=== PATIENT | female | born 2005 | race Caucasian/White ===

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

== ENCOUNTER → 2024-12-12 | Outpatient (CLI) | payer BC, SELFPAY ==
--- NOTE | 2024-12-12 15:45 | RAD_ITS ---
PROCEDURE: LUMBAR SPINE 2 OR 3 VIEWS 12/12/2024 REASON FOR EXAM: LOW BACK PAIN TECHNIQUE: Procedure Code: RADSPLL Modality: DX Procedure: LUMBAR SPINE 2 OR 3 VIEWS FINDINGS: No evidence of acute fracture or dislocation. Mild scoliotic curvature. The intervertebral disc spaces and vertebral body heights are maintained. RAD/Lumbar Spine 2 or 3 Views IMPRESSION: Mild scoliotic curvature. Reading Location: [id number]
== END | disposition home or self-care (01) ==
LOC: MTRAD 15:41
PROVIDERS: PCP Family Medicine; Referring Provider Family Medicine; Visit Provider Family Medicine
DX: M54.50 Low back pain, unspecified (principal)
CPT/HCPCS: 72100

== ENCOUNTER → 2025-03-11 | Outpatient (CLI) | payer BC, SELFPAY ==
--- NOTE | 2025-03-11 14:45 | RAD_ITS ---
PROCEDURE: KNEE 4 OR MORE VIEWS 03/11/2025 REASON FOR EXAM: PAIN TECHNIQUE: Procedure Code: RADKN Modality: DX Procedure: KNEE 4 OR MORE VIEWS COMPARISON: None. RAD/Knee 4 or More Views IMPRESSION: No right knee joint effusion is seen. No significant arthritic process or joint narrowing is noted. Satisfactory oss eous alignment. No other significant osseous abnormality is noted. Reading Location: [place] [id number]
--- OUTSIDE RECORDS SUMMARY | 2025-03-11 19:56 | XMS RPT_ITS | CCD ---
Author Organization [facility] Care Team Providers Care Project Administrative Assistant Name Role Phone ALANIS, BAMBI A Unavailable Unavailable REFERRED, SELF Unavailable Unavailable ALANIS, BAMBI A Unavailable Unavailable ALANIS, BAMBI A Unavailable Unavailable REFERRED, SELF Unavailable Unavailable ALANIS, BAMBI A Unavailable Unavailable ALANIS, BAMBI A Unavailable Unavailable REFERRED, SELF Unavailable Unavailable ALANIS, BAMBI A Unavailable Unavailable FEDERICO, NESTOR B Unavailable Unavailable ALANIS, BAMBI A Unavailable Unavailable ALANIS, BAMBI A Unavailable Unavailable ALANIS, BAMBI A Unavailable Unavailable REFERRED, SELF Unavailable Unavailable ALANIS, BAMBI A Unavailable Unavailable ALANIS, BAMBI A Unavailable Unavailable REFERRED, SELF Unavailable Unavailable ALANIS, BAMBI A Unavailable Unavailable NAJARIAN, CHRISTOPHER R Unavailable Unavaila ble ALANIS, BAMBI A Unavailable Unavailable ALANIS, BAMBI A Unavailable Unavailable NAJARIAN, CHRISTOPHER R Unavailable Unavaila ble ALANIS, BAMBI A Unavailable Unavailable ALANIS, BAMBI A Unavailable Unavailable NAJARIAN, CHRISTOPHER R Unavailable Unavaila ble NAJARIAN, CHRISTOPHER R Unavailable Unavaila ble ALANIS, BAMBI A Unavailable Unavailable TIMMEL, MANISH M Unavailable Unavailable REFERRED, SELF Unavailable Unavailable ALANIS, BAMBI A Unavailable Unavailable ALANIS, BAMBI A Unavailable Unavailable REFERRED, SELF Unavailable Unavailable ALANIS, BAMBI A Unavailable Unavailable Vero Balbuena Attending Unavailable MalysVero Referring Unavailable Malys, Vero Primary Care Unavailable MalysVero Attending Unavailable Malys, Vero Primary Care Unavailable Naveedys Dr. Vero LAWRENCE Primary Care Physician Dr. Vero Balbuena DO Attending Physician Dr. Vero Balbuena DO Referring Provider [phone] Allergies Allergy Classification Reported Allergen(s) Allergy Type Date of Onset Reaction(s) Facility (1 source) peanut; Translations: [PEANUT ALLERGY] Propensity to adverse reactions to drug (disorder) 6 [facility] Repository (1 source) NO KNOWN ALLERGIES; Translations: [NO KNOWN ALLERGIES] Propensity to adverse reactions (disorder) [facility] Repository Medications Current Medications Medication Drug Class(es) Dates Sig (Normalized) Sig (Original) Sehili (Nk) (1 source) Start: 05-03-2022 Sehili (Nk) A ctive May 03, 2022 1:00am Completed/Discontinued Medications Medication Drug Class(es) Dates Sig (Normalized) Sig (Original) amoxicillin 875 mg / clavulanate 125 mg oral tablet (2 sources) Penicillin-class Antibacterial Start: 11-28-2020 End: 12-08-2020 Amoxicillin-Pot Clavulanate (Augmentin) 875-125 mg tablet Discontinued 1 {tbl} PO Q12H 20 10 0 November 28, 2020 12:00am December 07, 2020 12:00am December 08, 2020 12:01am Acute sinusitis, unspecified betamethasone 0.5 mg/ml / clotrimazole 10 mg/ml topical cream (2 sources) Azole Antifungal, Corticosteroid Start: 11-28-2020 End: 12-12-2020 Clotrimazole-Betam ethasone 1-0.05 % cream Discontinued 1 NMA TOPICAL TWICE A DAY 45 14 0 November 28, 2020 12:00am December 11, 2020 12:00am December 12, 2020 12:01am Start: 11-28-2020 End: 12-12-2020 Clotrimazole-Betamethasone D iscontinued 1 APPLIC TOPICAL TWICE A DAY 45 14 November 27, 2020 11:00pm December 11, 2020 11:01pm cetirizine hydrochloride 10 mg oral tablet (2 sources) Histamine-1 Receptor Antagonist Start: 08-29-2021 End: 09-05-2021 take 1 tablet by mouth twice daily Cetirizine 10 mg tablet Discontinued 10 mg PO TWICE A DAY 14 7 0 August 29, 2021 12:00am September 04, 2021 12:00am September 05, 2021 12:05am Norgestimate-Ethinyl Estradiol (2 sources) Progestin, Estrogen Start: 06-22-2018 End: 05-03-2022 take 0.25 tablet by mouth once daily Norgestimate-Ethin yl Estradiol ([place]-Linyah 28 Tablet) 0.25-0. tablet Discontinued 1 {tbl} PO DAILY June 22, 2018 12:00am May 03, 2022 1:51pm Start: 06-22-2018 Norgestimate-E thinyl Estradiol ([place]-Linyah 28 Tablet) 0.25- 0. tablet Active 1 TABLET PO DAILY June 21, 2018 11:00pm famotidine 20 mg oral tablet (2 sources) Histamine-2 Receptor Antagonist Start: 08-29-2021 End: 09-05-2021 take 1 tablet by mouth once daily Famotidine 20 mg tablet Discontinued 20 mg PO DAILY 7 7 0 August 29, 2021 12:00am September 04, 2021 12:00am September 05, 2021 12:05am fluconazole 150 mg oral tablet (2 sources) Azole Antifungal Start: 12-05-2020 End: 08-29-2021 Fluconazole (Diflucan) 150 mg tablet Discontinued 150 mg PO Every 3 Days 2 0 December 05, 2020 12:00am August 29, 2021 11:40am july repeat second dose 72 hrs after first dose if symptoms persist predniSONE 10 mg oral tablet (2 sources) Start: 08-29-2021 End: 09-05-2021 Prednisone 10 mg tablet Discontinued 10 mg PO .COMPLEX 9 7 0 August 29, 2021 12:00am September 04, 2021 12:00am September 05, 2021 12:05am 10 mg orally; 20mg day 1, 20mg day 2, 20 mg day 3, 10mg day 4, 10mg day 5, 5mg day 6, 5mg day 7 Problems Active Problems Problem Classification Problem Date Documented Date Episodic/Chronic Abdominal pain (1 source) Abdominal tenderness of left lower quadrant; Translations: [Left lower quadrant abdominal tenderness] 05-03-2022 Episodic Allergic reactions (2 sources) Environmental allergy; Translations: [Other allergy status, other than to drugs and biological substances] 08-29-2021 Episodic Open wounds of extremities (2 sources) Laceration of index finger; Translations: [Laceration without foreign body of other finger without damage to nail, initial encounter] 03-29-2021 Episodic Other upper respiratory infections (4 sources) Upper respiratory infection; Translations: [Acute upper respiratory infection, unspecified] 05-11-2017 Episodic Unclassified (1 source) Low back pain, unspecified; Translations: [Low back pain, unspecified] Onset: 12-21-2024 Past or Other Problems Problem Classification Problem Date Documented Da te Episodic/Chronic Conditions associated with dizziness or vertigo (1 source) Dizziness and giddiness; Translations: [Dizziness and giddiness] Onset: 04-24-2024 Episodic Malaise and fatigue (1 source) Weakness; Translations: [Weakness] Onset: 04-24-2024 Episodic Other gastrointestinal disorders (1 source) Diarrhea, unspecified; Translations: [Diarrhea, unspecified] Onset: 04-24-2024 Episodic Results Test Name Value Interpretation Reference Range Facility Lumbar Spine 2 or 3 Viewson 12-12-2024 Lumbar Spine 2 or 3 Views [facility] [address], [place] [address] Lumbar Spine 2 or 3 Views MR#: [id number] Acct: [id number] Name: MILAN BALLARD Rep #: [id number] : 2005 F 19 From: Navdeep Maria MD PCP: Dr. Vero Balbuena DO Status: REG CLI Study: Lumbar Spine 2 or 3 Views Date of Exam: Exam# [id number] Ordering Dr: Vero Balbuena DO PROCEDURE: LUMBAR SPINE 2 OR 3 VIEWS 12/12/2024 REASON FOR EXAM: LOW BACK PAIN TECHNIQUE: Procedure Code: RADSPLL Modality: DX Procedure: LUMBAR SPINE 2 OR 3 VIEWS FINDINGS: No evidence of acute fracture or dislocation. Mild scoliotic curvature. The intervertebral disc spaces and vertebral body heights are maintained. RAD/Lumbar Spine 2 or 3 Views IMPRESSION: Mild scoliotic curvature. Reading Location: [id number] CC: Dr. Vero Balbuena DO Residential Caregiver: Signed Normal [facility] Iron measurement (mass/mass) Ordered By: Dr. Balbuena on 04-15-2022 Iron (Unsp spec) [Mass/Mass] 87 ug/dL 50-170 [facility] Comment on above: Moderate Hemolysis, Result may be falsely increased. Laboratory - Chemistry and C hemistry - challengeOrdered By: Dr. Balbuena on 04-15-2022 Cobalamin (Vitamin B12) [Mass/Vol] 632 pg/mL 211-911 [facility] No Panel InformationOrdered By: Dr. Balbuena on 04-15-2022 Vitamin D 25-Hydroxy 27.2 ng/mL [facility] Comment on above: Vitamin D 25(OH) Sta tus Range Deficiency <20 ng/mL (50nmol/L) Insufficiency 20 - 30 ng/mL (50 - 75 nmol/L) Sufficiency 30 - 100 ng/mL (75 - 250 nmol/L) Toxicity >100 ng/mL (>250 nmol/L) Progress Noteon 01-04-2018 Pharmacy District Manager Authentication Interface Message Text Patient ID: Milan Ballard is a 12 y.o. female. Her chief complaint(s)include: Wound Check (cramping (better))Assessment1. Abdominal cramping2. Dysmenorrhea3. Vaccine refused by parentPlanHayley was seen today for wound check.Diagnoses and all orders for this visit:Abdominal cramping- norgestimate-ethinyl estradiol (MONONESSA) 0.25-35 MG-MCG per tablet; Take1 Tab by mouth daily for 10 daysDysmenorrhea- norgestimate-ethinyl estradiol (MONONESSA) 0.25-35 MG-MCG per tablet; Take1 Tab by mouth daily for 10 daysVaccine refused by parentPatient doing much better since placed on the oral contraceptives. Not havingany side effects of the medication. Will continue with current medication.Discussed discontinuing the OCPs in the future once pain and cycle are regulatedto see if discomfort returns. Patient wanting to keep thing the same for now.Return in about 6 months (around 07/05/2018).MunirShe is accompanied by her mother.Abdominal PainThe onset has been acute. The duration has been 2 months. The pattern ispersistent. The course is improving. The symptoms are described as severe.The highest pain severity has been 8/10. The symptoms are characterized ascramping and sharp. Location: alternating sides. The pain has no radiation.Contributing Factors: abdominal pain was associated with her menses. Thesymptoms are aggravated by nothing. Symptoms are relieved by medication(started on OCP which has been helping).Associated symptoms include sleep disturbance (slight). Associated symptoms donot include fatigue, irritability, interference with activity, decreasedappetite, weight loss, jaundice, headaches, sore throat, heartburn, diarrhea,vomiting, amenorrhea and urinary changes. (Patient is not having anybreakthrough bleeding, weight gain or loss, hair loss).The patient's diet consists of a well balanced diet.She describes her cycle as having: regularity - every 28-30 days. The patienthas never had a significant other.There have been no previous evaluations..Primary Care Review of SystemsObjectiveVital Signs 01/04/18 1629BP: 124/78Pulse: 94Temp: 36.2 C (97.1 F)TempSrc: TemporalWeight: 60.1 kgThere is no height or weight on file to calculate BMI.Physical ExamConstitutional: She appears well. She is active. No distress.HENT:Head: Atraumatic.Right Ear: Tympanic membrane and external ear normal.Left Ear: Tympanic membrane and external ear normal.Nose: Nose normal.Mouth/Throat: Mucous membranes are moist. Dentition is normal.Eyes: Conjunctivae and EOM are normal. Pupils are equal, round, and reactive tolight.Neck: Neck supple. No neck adenopathy.Cardiovascular: Normal rate, regular rhythm, S1 normal and S2 normal. Pulsesare palpable.Pulmonary/Chest: Effort normal and breath sounds normal.Abdominal: Soft. Bowel sounds are normal. She exhibits no distension and nomass. There is no tenderness.Musculoskeletal: She exhibits no deformity.Neurological: She is alert. She has normal strength. She exhibits normal muscletone.Skin: No rash noted. No cyanosis. No pallor. Skin is warm. Normal [facility] Progress Noteon 11-04-2017 Pharmacy District Manager Authentication Interface Message Text Patient ID: Milan Ballard is a 12 y.o. female. Her chief complaint(s)include: Ovarian Cyst (possible; abdominal pain)Assessment1. Dysmenorrhea2. Abdominal crampingPlanHayley was seen today for ovarian cyst.Diagnoses and all orders for this visit:Dysmenorrhea- POCT urine HCG- norgestimate-ethinyl estradiol (ORTHO-CYCLEN) 0.25-35 MG-MCG per tablet;Take 1 Tab by mouth dailyAbdominal cramping- norgestimate-ethinyl estradiol (ORTHO-CYCLEN) 0.25-35 MG-MCG per tablet;Take 1 Tab by mouth dailyReturn in about 2 months (around 01/04/2018) for abdominalcramping/dysmenorrhea. hcg negative. Will start OCP for severe midcycle cramping not responding totreatment with NSAIDs. Discussed possible side effects and reasons to call theoffice. No personal or family history significant for increased risk ofthrombosis. Will follow up in 2 months for recheck of symptoms after startingthe OCP and will call sooner if any concerns or questions.SubjectiveHPI Comments: Has had 5 days of abdominal pain. Initially on left side nowacross lower abdomen. Intermittent over the past few days, becoming moreconstant now. Crampy. Taking Aleve twice per day and using heating pads. Slightimprovement but not a lot with the heat and meds. Last period was about 2 weeksago. Same timing between periods before when she had the symptoms previously(midcycle). No nausea or vomiting. No diarrhea or constipation this time. Nourinary symptoms.No major problems or bad cramping when she is on her period. No problems withheavy bleeding. Periods are regular. Menarche was 2.5 years ago. Abdominal painis always about 2-3 weeks after her period (has had 3 similar episodes now).Also having headaches with it (mild, resolve with the aleve). Did start highschool this week as well.A few months ago, had first similar episode and went [facility]. CT scanshowed bilateral ovarian cysts- one ruptured. Saw Dr. Alanis for a secondepisode then returned today with similar symptoms. Has tried ibuprofen and midolbefore without improvement.She is accompanied by her mother and sibling(s).Ovarian CystThe onset has been acute. The duration has been 5 days.The patient's symptoms include: abdominal pain, abdominal cramping, fatigue andheadaches. The patient has: no back pain, no breast tenderness, no heavy flow,no nausea, no pelvic pain, no syncope, no urinary frequency and no vomiting.The patient is noted to be negative for constipation, diarrhea, difficultysleeping, fever and muscle weakness.The patient has reached menarche. Milan's age at menarche was 10. Patient'slast menstrual period was 10/16/2017 (within days). She describes her cycleas having: regularity - every 28-30 days.The patient has never had sex.ContraceptionHayley is here today regarding a new prescription. status: not.The patient has never had sex.She has not had a blood clot in her legs or lungs. There is not a familyhistory of blood clots in the legs or lungs. She had no miscarriages. There isnot a family history of miscarriages. There is no cancer in the patient'shistory. The patient reports no stroke or heart attack. She currently couldnot be . She does not have Sickle Cell, Diabetes, gall bladder orliver disease. She has no severe headaches. (Has mild headaches that respondto OTC NSAIDs. Has never had a headache or migraine with aura.). Milan doesnot have migraines She does not smoke.Primary Care Review of SystemsObjectiveVital Signs 11/04/17 1005Temp: 36.3 C (97.4 F)TempSrc: TemporalWeight: 62.1 kgThere is no height or weight on file to calculate BMI.Physical ExamConstitutional: She appears well. She is active. No distress.HENT:Head: Atraumatic.Nose: No nasal discharge.Mouth/Throat: Mucous membranes are moist.Eyes: Conjunctivae are normal.Neck: Normal range of motion. Neck supple.Cardiovascular: Normal rate and regular rhythm. Pulses are strong.No murmur heard.Pulmonary/Chest: Effort normal and breath sounds normal. There is normal airentry. No respiratory distress. She has no wheezes. She has no rhonchi. She hasno rales.Abdominal: Soft. Bowel sounds are normal. She exhibits no distension and nomass. There is tenderness (mild tenderness to palpation throughout lowerabdomen). There is no rebound and no guarding.Musculoskeletal: No pain, swelling, or limited range of motion at any joint.Neurological: She is alert.Skin: Capillary refill takes less than 3 seconds. No rash noted. Skin is warm. Normal [facility] Progress Noteon 08-23-2017 Pharmacy District Manager Authentication Interface Message Text Milan Ballard is a 12 y.o. female here for new office visit.History of Present IllnessInjured May 31. [place] light headed and fell and hit head on book case.Knocked out < 10 seconds. 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 +HAdizziness and nausea. Concurrent stomach bug. June 06 - Dr. Alanis dx TBI.Start Magnesium and B2.Ran out of B2.EKG 06/07 - normal/ - discussed periactin06/29 - augmentin for sinusitisToday RAVI daily comes and goes. Takes Advil 200 mg 3x/week. Dizzy most dayscomes and goes. Reading and school makes worse. Better with silence andsunglasses and ice. Tight like a head band, sometimes does down the neck.Turn head makes it hurt below occipital protuberance. PS 3-810.Dizziness with and without RAVI, worse with stairs and moving heard.Sinus RAVI just feel pressure.Difficulty concentrating and remembering and falling asleep.No band for 2 weeks Everything getting better. No Mg, B2 or periactin in 2 weeks. Hangover effectinto school. Still gets sinus RAVI in eyes and frontal. Last RAVI was end of Juneor Early July. Got accommodations for state testing/extra time. Doing softball- hitting and running in practice and games. No dizziness.Took one dose of melatonin - now no issues falling asleep.Headache phenotype (answer yes or no)Possible migraine phenotype? (A yes answer for 2/3 following items)Is nausea present? NoIs light sensitivity present? NoDoes headache prevent you from doing your regular activities? NoAdditional features for stratificationContinuous headache present? NoDaily headache present? No8th grade [employer]. A-B student. Grades down slightly.Missed 3 days of school initially. Going full days.No prior concussions. Hx of sinus headaches. No psych history.Plays softball. HistoryNo history on file.Past Medical HistoryNo past medical history on file.Ruptured ovarian cystPast Surgical HistoryNo past surgical history on file.AllergiesNo Known AllergiesMedicationsOutpatient Encounter Prescriptions as of 08/23/2017Medication Sig Dispense Refill magnesium oxide (MAG OX) 400 MG TABS tablet Take 1 Tab (400 mg) by mouth daily30 Tab 2 melatonin 3 MG tablet Take 1 Tab (3 mg) by mouth nightly at bedtime 30 Tab 2 vitamin B-2 (RIBOFLAVIN) 100 MG capsule Take 4 Caps (400 mg) by mouth Cap 2 cyproheptadine (PERIACTIN) 4 MG tablet Take 1 Tab (4 mg) by mouth At bedtime(Patient taking differently:Take 4 mg by mouth At bedtime Taking half tab) 30 Tab 2 vitamin B-2 (RIBOFLAVIN) 100 MG tablet Take 2 Tabs (200 mg) by mouth daily 60Tab 2 Tetrahydrozoline HCl (EYE DROPS OP) Apply to eye as needed fluticasone (FLONASE) 50 MCG/ACT nasal spray 1 [place] by Each Nare route daily16 g 11 Ketotifen Fumarate (ZADITOR, ALAWAY) 0.025 % opthalmic solution instill 1 Dropinto both eyes 2 times daily 10 mL 11 Naproxen Sodium (ALEVE PO) Take 200 mg by mouth as needed cetirizine (ZYRTEC) 10 MG tablet Take 10 mg by mouth daily as needed Magnesium Oxide (MAG OX) 400 (241.3 Mg) MG TABS tablet Take 1 Tab (400 mg) bymouth daily 30 Tab 2No facility-administered encounter medications on file as of 08/23/2017.Family Medical HistoryFamily HistoryProblem Relation Age of Onset No known problems Mother No known problems Father Allergies Brother seasonal/?pcn Stroke BrotherSocial HistorySocial HistorySubstance Use Topics Smoking status: Never Smoker Smokeless tobacco: Never Used Alcohol use Not on fileSocial HistoryTherapiesNoneEquipmentNo neFunctional StatusOFHFeedDressTransfersBowe l/bladder programMobilityCommunicationRev iew of SystemsPertinent items are noted in HPI. Please see H&P.Physical ExaminationVitals: 08/23/17 1253BP: 125/60Pulse: 104Weight: 60.3 kgHeight: 168.5 cmBody mass index is 21.24 kg/m .General appearance: alert, well appearing and cooperativeHead: normocephalic, without obvious abnormalityEyes: conjugate gaze EOM's intactNeck: NTBack: straightLungs: easy work of breathingHeart: NTAbdomen: NRExtremities: moves all extremities spontaneouslySkin: skin color, texture, turgor normal. No rashes or lesionsNeurologic: Grossly normalGait: able to walk on toes, heels and tandem okay with eyes open, some loss ofbalance with eyes closed.Visual/vestibular exam:Extraocular movements smooth and intact without jerkiness or nystagmusFast saccades smooth with jerkiness or nystagmus+vestibular ocular reflex with provocation of dizziness or headache whenchallengedHead thrust test positive for provocation of dizziness without nystagmusNear point of convergence 13 cmCervical neck musculoskeletal exam:Rotation: full range of motionFlexion: full range of motion with painExtension: full range of motionLateral bending right: full range of motionLateral bending left: full range of motionCervical tenderness to palpation Yes Location occipital/nuchal and paraspinalsTrigger points NoCoordination:Rapid alternating movements intact bilaterallyFinger to nose testing intact bilateralMusculoskeletal Exam: PROM/AROM PROM/AROM R LShoulder AbductionShoulder IR/ERShoulder FlexionElbow ExtensionElbow FlexionSupinationPronationWrist ExtensionWrist FlexionFinger ExtensionFinger FlexionThumb ExtensionMuscles Strength Strength Agnes Agnes R L R LShoulder AbductionElbow FlexionElbow ExtensionForearm PronationWrist FlexorsWrist ExtensorsFinger FlexorsFinger Abductors Dig II/VThumb AbductorThumb OpponensThumb Extensor PROM/AROM PROM/AROM R LH IR/ERHip ExtensionHip FlexionHip Abduction KB/KEKnee ExtensionKnee FlexionAnkle Dorsiflexion KB/KEAnkle PlantarflexionPopliteal Angle Strength Strength Agnes Agnes R L R LHip FlexionHip ExtensionHip AbductionHip AdductionKnee ExtensionKnee FlexionAnkle DorsiflexionAnkle PlantarflexionAnkle EversionAnkle InversionGreat Toe ExtensionGreat Toe FlexionReflexes R LBicepsBRTricepsPatellaAnkleBab inskiClonus R LElyGalaezziThigh Foot AngleThomasLab ResultsPCSS 75, 57 (RAVI 4, dizziness 5),JEM 15, 49 avgBDI 12, 49 avgCISS 32Aubrey - mod difficulty with attention, +visual spatial issuesImaging FindingsImage External ScanResult Date: 02/15/2017CT ABDOMEN AND PELVISAssessment/PlanHayley was seen today for tbi (traumatic brain injury).Diagnoses and all orders for this visit:Concussion with loss of consciousness of 30 minutes or less, initial encounter- Referral to Optometry-Convergence insufficiency - 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 [x] Allow extra time to complete coursework/assignments and tests, may need aquiet room for testing. [] Consider take home tests, open book or open note tests until caught up withthe class work. [x] Lessen homework load by 50% in reading and computer classes. Maximumlength of nightly homework: 60 minutes. [x] Please provide pre-printed class notes to help prevent visual fatigue. [x] No significant standardized testing. Please postpone state testing. [x] Please allow rest breaks during the day as needed, 5-10 minutes for eyestrain or headaches, may need to wear sunglasses for bright light. [] Request meeting of 504 or School Management Team to discuss this plan andneeded supports.-Return to play guidelines discussed and copied in AVS-f/u 6 weeks60 minute visit; > 50% of the [id number] visit time was dedicated tocounseling and coordination of medical care. This note or partial portions ofthis note may have been created using a copy forward or copy paste feature, butthese portions have been verified and and re-edited for accuracy and anyportions not in need of editing or review are not being used to generate anycomponent necessary for billing purposes. Elements necessary for proper CPT codeselection are based only on elements of the visit that are truly unique to thisvisit. Normal [facility] Progress Noteon 07-04-2017 Pharmacy District Manager Authentication Interface Message Text Milan Ballard is a 12 y.o. female here for new office visit.History of Present IllnessInjured May 31. [place] light headed and fell and hit head on book case.Knocked out < 10 seconds. 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 +HAdizziness and nausea. Concurrent stomach bug. June 06 - Dr. Alanis dx TBI.Start Magnesium and B2.Ran out of B2.EKG 06/07 - normal06/14 - discussed periactin06/29 - augmentin for sinusitisToday RAVI daily comes and goes. Takes Advil 200 mg 3x/week. Dizzy most dayscomes and goes. Reading and school makes worse. Better with silence andsunglasses and ice. Tight like a head band, sometimes does down the neck.Turn head makes it hurt below occipital protuberance. PS 3-8/10.Dizziness with and without RAVI, worse with stairs and moving heard.Sinus RAVI just feel pressure.Difficulty concentrating and remembering and falling asleep.No band for 2 weeksHeadache phenotype (answer yes or no)Possible migraine phenotype? (A yes answer for 2/3 following items)Is nausea present? NoIs light sensitivity present? Yes, also phonophobiaDoes headache prevent you from doing your regular activities? YesAdditional features for stratificationContinuous headache present? NoDaily headache present? Yes8th grade [employer]. A-B student. Grades down slightly.Missed 3 days of school initially. Going full days.No prior concussions. Hx of sinus headaches. No psych history.Plays softball. HistoryNo history on file.Past Medical HistoryNo past medical history on file.Ruptured ovarian cystPast Surgical HistoryNo past surgical history on file.AllergiesNo Known AllergiesMedicationsOutpatient Encounter Prescriptions as of 07/04/2017Medication Sig Dispense Refill amoxicillin-clavulanate (AUGMENTIN) 875-125 MG tablet Take 1 Tab (875 mg) bymouth 2 times daily for 10 days 20 Tab 0 vitamin B-2 (RIBOFLAVIN) 100 MG tablet Take 2 Tabs (200 mg) by mouth daily 60Tab 2 Magnesium Oxide (MAG OX) 400 (241.3 Mg) MG TABS tablet Take 1 Tab (400 mg) bymouth daily 30 Tab 2 Tetrahydrozoline HCl (EYE DROPS OP) Apply to eye as needed fluticasone (FLONASE) 50 MCG/ACT nasal spray 1 Folcroft by Each Nare route daily16 g 11 Ketotifen Fumarate (ZADITOR, ALAWAY) 0.025 % opthalmic solution instill 1 Dropinto both eyes 2 times daily 10 mL 11 Naproxen Sodium (ALEVE PO) Take 200 mg by mouth as needed cetirizine (ZYRTEC) 10 MG tablet Take 10 mg by mouth daily as neededNo facility-administered encounter medications on file as of 07/04/2017.Family Medical HistoryFamily HistoryProblem Relation Age of Onset No known problems Mother No known problems Father Allergies Brother seasonal/?pcn Stroke BrotherSocial HistorySocial HistorySubstance Use Topics Smoking status: Never Smoker Smokeless tobacco: Never Used Alcohol use Not on fileSocial HistoryTherapiesNoneEquipmentNo neFunctional StatusOFHFeedDressTransfersBowe l/bladder programMobilityCommunicationRev iew of SystemsPertinent items are noted in HPI. Please see H&P.Physical ExaminationThere were no vitals filed for this visit.There is no height or weight on file to calculate BMI.General appearance: alert, well appearing and cooperativeHead: normocephalic, without obvious abnormalityEyes: conjugate gaze EOM's intactNeck: NTBack: straightLungs: easy work of breathingHeart: NTAbdomen: NRExtremities: moves all extremities spontaneouslySkin: skin color, texture, turgor normal. No rashes or lesionsNeurologic: Grossly normalGait: able to walk on toes, heels and tandem okay with eyes open, some loss ofbalance with eyes closed.Visual/vestibular exam:Extraocular movements smooth and intact without jerkiness or nystagmusFast saccades smooth with jerkiness or nystagmus+vestibular ocular reflex with provocation of dizziness or headache whenchallengedHead thrust test positive for provocation of dizziness without nystagmusNear point of convergence 13 cmCervical neck musculoskeletal exam:Rotation: full range of motionFlexion: full range of motion with painExtension: full range of motionLateral bending right: full range of motionLateral bending left: full range of motionCervical tenderness to palpation Yes Location occipital/nuchal and paraspinalsTrigger points NoCoordination:Rapid alternating movements intact bilaterallyFinger to nose testing intact bilateralMusculoskeletal Exam: PROM/AROM PROM/AROM R LShoulder AbductionShoulder IR/ERShoulder FlexionElbow ExtensionElbow FlexionSupinationPronationWrist ExtensionWrist FlexionFinger ExtensionFinger FlexionThumb ExtensionMuscles Strength Strength Agnes Agnes R L R LShoulder AbductionElbow FlexionElbow ExtensionForearm PronationWrist FlexorsWrist ExtensorsFinger FlexorsFinger Abductors Dig II/VThumb AbductorThumb OpponensThumb Extensor PROM/AROM PROM/AROM R LH IR/ERHip ExtensionHip FlexionHip Abduction KB/KEKnee ExtensionKnee FlexionAnkle Dorsiflexion KB/KEAnkle PlantarflexionPopliteal Angle Strength Strength Agnes Agnes R L R LHip FlexionHip ExtensionHip AbductionHip AdductionKnee ExtensionKnee FlexionAnkle DorsiflexionAnkle PlantarflexionAnkle EversionAnkle InversionGreat Toe ExtensionGreat Toe FlexionReflexes R LBicepsBRTricepsPatellaAnkleBab inskiClonus R LElyGalaezziThigh Foot AngleThomasLab ResultsPCSS 75, 57 (RAVI 4, dizziness 5)JEM 15, 49 avgBDI 12, 49 avgCISS 32Aubrey - mod difficulty with attention, +visual spatial issuesImaging FindingsImage External ScanResult Date: 02/15/2017CT ABDOMEN AND PELVISAssessment/PlanDiagnoses and all orders for this visit:Concussion with loss of consciousness, sequela- AMB Referral To Neurology-Convergence insufficiency - 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 [x] Allow extra time to complete coursework/assignments and tests, may need aquiet room for testing. [] Consider take home tests, open book or open note tests until caught up withthe class work. [x] Lessen homework load by 50% in reading and computer classes. Maximumlength of nightly homework: 60 minutes. [x] Please provide pre-printed class notes to help prevent visual fatigue. [x] No significant standardized testing. Please postpone state testing. [x] Please allow rest breaks during the day as needed, 5-10 minutes for eyestrain or headaches, may need to wear sunglasses for bright light. [] Request meeting of 504 or School Management Team to discuss this plan andneeded supports.-Return to play guidelines discussed and copied in AVS-f/u 6 weeks60 minute visit; > 50% of the yblz-up-keko visit time was dedicated tocounseling and coordination of medical care. This note or partial portions ofthis note may have been created using a copy forward or copy paste feature, butthese portions have been verified and and re-edited for accuracy and anyportions not in need of editing or review are not being used to generate anycomponent necessary for billing purposes. Elements necessary for proper CPT codeselection are based only on elements of the visit that are truly unique to thisvisit. Normal [facility] Progress Noteon 06-29-2017 Pharmacy District Manager Authentication Interface Message Text Patient ID: Milan Ballard is a 12 y.o. female. Her chief complaint(s)include: Cold Symptoms and Fever.Assessment:1. Acute bacterial sinusitis2. Fever, unspecified fever causePlan:Milan was seen today for cold symptoms and fever.Diagnoses and all orders for this visit:Acute bacterial sinusitis- amoxicillin-clavulanate (AUGMENTIN) 875-125 MG tablet; Take 1 Tab (875 mg)by mouth 2 times daily for 10 daysFever, unspecified fever causeSymptomatic treatment for fever. To call if symptoms persists/worsens.Return for Well Visit and as needed.Subjective:She is accompanied by her mother and sibling(s).Cold SymptomsThe onset has been gradual. The duration has been 1 week. (Or so). Thepattern is persistent. The course is gradually worsening.The patient's symptoms have included fatigue, fever, fussiness, decreasedappetite, difficulty sleeping, congestion, rhinorrhea, sore throat, facialtenderness and headaches (has a concussion). The patient's symptoms haveincluded no decreased fluid intake, no cough, no bilateral ear pain, noabdominal pain, no vomiting and no diarrhea.The patient has had a maximum temperature of 101.5 degrees. The temperature wastaken by temporal artery thermometer. The patient has been exposed to no sickcontactsThe patient's home management has included ibuprofen and decongestants.The patient's past medical history is positive for sinusitis (off/on). Thepatient's past medical history is negative for no allergies, no adenoidectomyand no tonsillectomy.Review of SystemsConstitutional: Positive for fever.Objective:Physical ExamConstitutional: She appears well. She is active. No distress.HENT:Head: Atraumatic.Right Ear: Tympanic membrane normal.Left Ear: Tympanic membrane normal.Nose: Nasal discharge (thick, nasal drainage, frontal and maxillary sinustenderness) present.Mouth/Throat: Throat is red (mild). Mucous membranes are moist.Eyes: Conjunctivae are normal.Cardiovascular: Normal rate and regular rhythm.No murmur heard.Pulmonary/Chest: Breath sounds normal. There is normal air entry.Neurological: She is alert.Vitals reviewed: Temperature (!) 38.6 C (101.5 F), temperature sourceTemporal, weight 58.4 kg. Normal [facility] Progress Noteon 06-14-2017 Pharmacy District Manager Authentication Interface Message Text Patient ID: Milan Ballard is a 12 y.o. female. Her chief complaint(s)include: Concussion (follow up).Assessment:1. Concussion with loss of consciousness, sequelaPlan:Milan was seen today for concussion.Diagnoses and all orders for this visit:Concussion with loss of consciousness, sequela- AMB Referral To Neurology; FuturePatient continues to have significant symptoms. Discussed starting onperiactin, but elected to wait until seen by neurology/head injury clinic.Continue with the B2 and magnesium oxide. Patient still not cleared to resumesporting activities. Will need to avoid electronic screens, etc so as to notworsen headaches. To call if worsening/concerns. Follow up if worsening or in2 weeks if not able to get into neurology before that.Return if symptoms worsen or fail to improve.Subjective:She is accompanied by her mother.ConcussionThe onset has been precipitated by a specific incident (had episode of syncopeand fell and hit back of head). The time since incident has occurred is 2weeks. The course is improving (slightly improving).The mechanism of injury is through fall. Injury occurred to occipital.The pain is characterized as stabbing and throbbing. The pain severity isdescribed as moderate. The injury event circumstances include: loss ofconsciousness (unsure but questionable), amnesia (doesn't remember the episode),appears dazed or stunned and is confused about events. The injury eventcircumstances do not include: seizures at incident. Other injuries include:extremity pain (left arm/elbow---improved).Associate d symptoms include headaches (not all the time anymore but are painfulwhen they do come), nausea, balance problems, dizziness, visual problems,fatigue, sensitivity to noise, feeling mentally foggy, feeling slowed down,concentration, difficulty remembering, irritability, drowsiness and sleepingless than usual. Patient denies vomiting, photophobia, numbness/tingling,sadness, feeling more emotional, excessive worry and sleeping more than usual.Symptoms worsen with cognitive activity. Physical activity: hasn't been doingany sports/physical activity.Overall Ratin.HistoryConcussion History: No.Headache History: No.Development History: No.Psychiatric History: No.Prior management include(s) NSAID use and other medication (magnesium oxide,b2). Previous visits include(s) PCP visit.There have been no previous diagnostic tests.Primary Care Review of SystemsObjective:Physical ExamConstitutional: She appears well. She is active. No distress.HENT:Head: Atraumatic.Right Ear: Tympanic membrane and external ear normal.Left Ear: Tympanic membrane and external ear normal.Nose: Nose normal.Mouth/Throat: Mucous membranes are moist. Dentition is normal.Eyes: Conjunctivae and EOM are normal. Pupils are equal, round, and reactive tolight.Neck: Neck supple. No neck adenopathy.Cardiovascular: Normal rate, regular rhythm, S1 normal and S2 normal. Pulsesare palpable.Pulmonary/Chest: Effort normal and breath sounds normal.Abdominal: Soft. Bowel sounds are normal. She exhibits no distension and nomass. There is no tenderness.Musculoskeletal: She exhibits no deformity.Neurological: She is alert. She has normal strength. She exhibits normal muscletone.Patient better able to walk a straight line and balance was improved. She wasable to count from 100 by 3's but had to think about her answers first. Fingerto nose was accurate but done slowly and deliberately.Skin: No rash noted. No cyanosis. No pallor. Skin is warm.Vitals reviewed: Blood pressure 114/59, pulse 89, temperature 36.1 C (96.9 F),temperature source Temporal, weight 57.9 kg. Normal [facility] Progress Noteon 06-06-2017 Pharmacy District Manager Authentication Interface Message Text Patient ID: Milan Ballard is a 12 y.o. female. Her chief complaint(s)include: Concussion.Assessment:1. Concussion with loss of consciousness, initial encounter2. Syncope, unspecified syncope typePlan:Milan was seen today for concussion.Diagnoses and all orders for this visit:Concussion with loss of consciousness, initial encounter- vitamin B-2 (RIBOFLAVIN) 100 MG tablet; Take 2 Tabs (200 mg) by mouthdaily- Magnesium Oxide (MAG OX) 400 (241.3 Mg) MG TABS tablet; Take 1 Tab (400mg) by mouth dailySyncope, unspecified syncope type- EKG 12 lead (ECG); Future- Basic Metabolic Panel (Lab Collect); Future- TSH (Lab Collect); FuturePatient still having significant symptoms and will continue to keep her out ofphysical education and sporting events until symptoms clear up. Will start onvitamin B2 and magnesium oxide. To call if symptoms persists/worsens.Otherwise, patient to follow up for recheck next week. Will obtain labs as wellto assess for any possible cause for original syncopal event. Patient to drinkplenty of fluids/get rest and avoid excessive screen time.Return in about 8 days (around 06/14/2017).Subjective:She is accompanied by her mother.ConcussionThe onset has been precipitated by a specific incident (had skipped eating andgot lightheaded and passed out). The time since incident has occurred is 1week. The course is constant.The mechanism of injury is through fall. Injury occurred to occipital.The pain is characterized as a dull ache. The pain severity is described asmoderate. The injury event circumstances include: loss of consciousness,amnesia, appears dazed or stunned and is confused about events. The injuryevent circumstances do not include: seizures at incident, repeats questions andforgetful. Other injuries include: back pain (upper back) and extremity pain(left lower arm).Associated symptoms include headaches, nausea, balance problems, dizziness,visual problems, fatigue, photophobia, sensitivity to noise, numbness/tingling,feeling mentally foggy, feeling slowed down, concentration, difficultyremembering, irritability, sadness, feeling more emotional, drowsiness, sleepingless than usual and sleeping more than usual. Patient denies vomiting andexcessive worry. Symptoms worsen with cognitive activity. Physical activity:haven't been doing anything physically so unsure if affected.Overall Ratin.HistoryConcussion History: No.Headache history: Yes.Prior treatments used for headache: ibuprofen.History of migraine headache: family.Development History: No.Psychiatric History: No.Prior management include(s) NSAID use. There have been no prior visits.There have been no previous diagnostic tests.Primary Care Review of SystemsObjective:Physical ExamConstitutional: She appears well. She is active. No distress.HENT:Head: Atraumatic.Right Ear: Tympanic membrane and external ear normal.Left Ear: Tympanic membrane and external ear normal.Nose: Nose normal.Mouth/Throat: Mucous membranes are moist. Dentition is normal.Eyes: Conjunctivae and EOM are normal. Pupils are equal, round, and reactive tolight.Neck: Neck supple. No neck adenopathy.Cardiovascular: Normal rate, regular rhythm, S1 normal and S2 normal. Pulsesare palpable.Pulmonary/Chest: Effort normal and breath sounds normal.Abdominal: Soft. Bowel sounds are normal. She exhibits no distension and nomass. There is no tenderness.Musculoskeletal: She exhibits no deformity.Neurological: She is alert. She has normal strength and normal reflexes. Nocranial nerve deficit or sensory deficit. She exhibits normal muscle tone. Shedisplays no seizure activity. Coordination (slightly off balance when standingon 1 foot with eyes closed but otherwise able to walk in a straight line (heelto toe)) abnormal.Reflex Scores: Patellar reflexes are 2+ on the right side and 2+ on the left side.Patient able to count from 100 by 3's, recalled 3 objects after 5 minutes buthad to think on it. Was very slow and deliberate with finger to nose but wasaccurate. Rapid hand movement was normal. Had good peripheral vision.Skin: No rash noted. No cyanosis. No pallor. Skin is warm.Vitals reviewed: Blood pressure 122/60, pulse 92, temperature 36 C (96.8 F),temperature source Temporal, weight 57.9 kg, last menstrual period 05/13/2017. Normal [facility] Progress Noteon 05-19-2017 Pharmacy District Manager Authentication Interface Message Text Patient ID: Milan Ballard is a 12 y.o. female. Her chief complaint(s)include: Rash (bilateral legs; not as red but still has bumps).Assessment:1. Rash and nonspecific skin eruption (bug bites vs erythema nodosum vs ?)Plan:Milan was seen today for rash.Diagnoses and all orders for this visit:Rash and nonspecific skin eruption (bug bites vs erythema nodosum vs ?)- Urinalysis, Complete [Chemistry & Micro] (Lab Collect); Future- Complete Blood Count with Diff (Lab Collect); Future- Creatine Kinase; FutureAt this time, will continue to monitor closely. To take ibuprofen fordiscomfort. Benadryl as needed if lesions become pruritic. Will continue tomonitor for worsening symptoms.Return if symptoms worsen or fail to improve.Subjective:She is accompanied by her mother and sibling(s).RashThe onset has been acute. The duration has been 2 days. The pattern ispersistent. The course is worsening. The highest pain severity has been 7/10.The rash is located on the leg(s) (lower legs). The rash is described as red,warm, itchy and bumpy. The symptoms are described as mild. Onset followed noskin contact with allergen, no food ingestion, no insect bite (no insect bites),no new medication, no recent illness, no recent immunizations, no exposure topets, no new skin care products and no exposure to hot tub. Relieved by:topical antihistamines didn't help.The patient's associated symptoms include: sore throat (some). The patient hasno fatigue, no fever, no fussiness, no rhinorrhea, no ear pain, no vomiting andno diarrhea.The patient has been exposed to no sick contacts. The patient's past medicalhistory is positive for food allergy. The patient's past medical history isnegative for no asthma and no drug allergy.Review of SystemsSkin: Positive for rash.Objective:Physical ExamConstitutional: She appears well. She is active. No distress.HENT:Head: Atraumatic.Right Ear: Tympanic membrane normal.Left Ear: Tympanic membrane normal.Mouth/Throat: Mucous membranes are moist.Eyes: Conjunctivae are normal.Cardiovascular: Normal rate and regular rhythm.No murmur heard.Pulmonary/Chest: Breath sounds normal. There is normal air entry.Neurological: She is alert.Skin: Rash (lower legs with multiple erythematous, raised, slightly firmlesions. Minimal warmth noted. Some pain with palpation. No drainage orpurulent/pustular appearance.) noted.Vitals reviewed: Temperature 36.1 C (97 F), temperature source Temporal,weight 56.1 kg, last menstrual period 05/13/2017. Normal [facility] Progress Noteon 02-22-2017 Pharmacy District Manager Authentication Interface Message Text Patient ID: Milan Ballard is a 11 y.o. female. Her chief complaint(s)include: ED Follow Up (adb pain).Assessment:1. Abdominal pain, right lower quadrant2. Abdominal pain, left lower quadrant3. Cyst of ovary, unspecified laterality4. Constipation, unspecified constipation type5. Follow-up examinationPlan:Milan was seen today for ed follow up.Diagnoses and all orders for this visit:Abdominal pain, right lower quadrantAbdominal pain, left lower quadrantCyst of ovary, unspecified lateralityConstipation, unspecified constipation typeFollow-up examinationPatient overall seeming to be doing better. Did recommend patient start keepingrecord of menstrual cycle and bowel movements to better assess cause ofabdominal pain in the future and to also help keep her more regulated in herbowel habits. To start on fiber supplements to help keep her regular. May usealeve/naprosyn for menstrual pain. To call if not improving/worsening.Return if symptoms worsen or fail to improve.Subjective:She is accompanied by her mother.ED Follow UpThe course is improving. The patient was discharged 6 weeks ago. The [facility]was [facility]. Her diagnosis was abdominal pain(ovarian cyst, ?rupture of ovarian cyst, constipation). Treatment: somemedications for the constipation.I have reviewed the discharge summary.Additional Parental Concerns: Patient is overall doing better. Still havingsome discomfort but not as bad. Is having more bowel movements than before. Nocurrent discomfort with stooling. No diarrhea. Patient also started withvaginal bleeding/menses 2 days ago. Patient had menarche at age 9.Primary Care Review of SystemsObjective:Physical ExamConstitutional: She appears well. She is active. No distress.HENT:Head: Atraumatic.Right Ear: Tympanic membrane normal.Left Ear: Tympanic membrane normal.Mouth/Throat: Mucous membranes are moist.Eyes: Conjunctivae are normal.Cardiovascular: Normal rate and regular rhythm.No murmur heard.Pulmonary/Chest: Breath sounds normal. There is normal air entry.Abdominal: Soft. Bowel sounds are normal. There is tenderness (mild discomfortwith palpation of right and left lower quandrants). There is no rebound and noguarding.Neurological: She is alert.Vitals reviewed: Temperature (!) 35.6 C (96 F), temperature source Temporal,weight 56.7 kg. Normal [facility] Encounters Encounter Date Encounter Type Care Provider Facility Start: 12-12-2024 End: 12-12-[address] Vero Balbuena DO Work Phone: [facility] Start: 12-12-2024 End: 12-12-[address] Vero Balbuena DO [facility] Work Phone: Start: 12-12-2024 End: 12-12-2024 ambulatory Vero Balbuena Facility:[facility] Start: 04-[facility] Start: 04-15-2022 End: 04-15-2022 ambulatory [facility] Work Phone: Start: 04-15-2022 End: 04-15-2022 Patient encounter procedure [facility], Specimen Start: 06-22-2018 Patient encounter procedure [facility] Start: 01-04-2018 End: 01-04-2018 Patient encounter BAMBI ALANIS [facility] Start: 11-04-2017 End: 11-04-2017 Patient encounter MAN[facility] P[facility] Start: 08-23-2017 End: 08-23-2017 Patient encounter ED Álvarez [facility] Start: 07-04-2017 End: 07-05-2017 [facility] Start: 06-29-2017 End: 06-29-2017 Patient encounter BAMBI ALANIS [facility] Start: 06-14-2017 End: 06-14-2017 Patient encounter B[facility] Start: 06-07-2017 End: 06-07-2017 Patient encounter NESTOR CABALLERO [facility] Start: 06-06-2017 End: 06-06-2017 Patient encounter BAMBI [facility] Start: 05-19-2017 End: 05-19-2017 Patient encounter BAMBI [facility] Start: 02-22-2017 End: 02-22-2017 Patient encounter BAMBI [facility] Procedures Date Procedure Procedure Detail Performing Clinician Start: 12-12-2024 [facility] spine lumbosac ral 2/[address] Vero Balbuena DO Work Phone: Payers Date Payer Category Payer Self-pay [id number] 2024 Unknown [id number] 1983 Unknown [id number] 1983 Unknown [id number] 1981 Unknown [id number] 1981 Unknown [id number] 2.16.8 40.1.071473.3.579.29 1983 Unknown [id number] 2.16.8 40.1.899640.3.579.29 1981 Unknown [id number] 2.16.8 40.1.934361.3.579.29 1981 Unknown [id number] 2.16.8 40.1.994396.3.579.29 1981 Unknown [id number] 2.16.8 40.1.149873.3.579.29 1981 Unknown [id number] 2.16.8 40.1.958428.3.579.2.479 1981 Unknown [id number] 2.16.8 40.1.926717.3.579.2.479 1981 Unknown [id number] 2.16.8 40.1.320123.3.579.2.479 Unknown [id number] 2.16.8 40.1.564961.3.579.2.462 Unknown [id number] 2.16.8 40.1.996672.3.579.2.462 Social History Date Type Detail Facility Start: 08-29-2021 Tobacco smoking stat [facility] Unknown if ever smoked [facility] Start: 2005 Sex Assigned At Female [facility] Start: 05-03-2022 Tobacco smoking stat [facility] Never smoked tobacco (finding) [facility] Sex Female [facility] Radiology Diagnostic study note 12-13-2024 Note Date & Type Note Facility 12-13-2024 Radiology Diagnostic study note [facility] Imaging Services [address] [place] [address] Lumbar Spine 2 or 3 Views MR#: [id number] Acct: [id number] Name: MILAN BALLARD Rep #: [id number] : 2005 F 19 From: Amadeo Maria MD PCP: Dr. Vero Balbuena DO Status: REG CLI Study:Lumbar Spine 2 or 3 Views Date of Exam: 12/12/24 Exam# [id number] Ordering Dr: Hilda Balbuena sa, DO PROCEDURE: LUMBAR SPINE 2 OR 3 VIEWS 12/12/2024 REASON FOR EXAM: LOW BACK PAIN TECHNIQUE: Procedure Code: RADSPLL Modality: DX Procedure: LUMBAR SPINE 2 OR 3 VIEWS FINDINGS: No evidence of acute fracture or dislocation. Mild scoliotic curvature. The intervertebral disc spaces and vertebral body heights are maintained. RAD/Lumbar Spine 2 or 3 Views IMPRESSION: Mild scoliotic curvature. Reading Location: [id number] CC: Dr. Vero Balbuena DO ~ Residential Caregiver: Signed [facility] Evaluation note Note Date & Type Note Facility Evaluation note No assessment information availa ble [facility] Work Phone: Reason for referral (narrative) Note Date & Type Note Facility Reason for referral (narrative) No reason for referral information available [facility] Work Phone: Summary Purpose Family History No Family History Records FoundNo Family History Records FoundNo Family History Records Found Advance Directives No Advanced Directives Records FoundNo Advanced Directives Records FoundNo Advanced Directives Records Found Chief Complaint and Reason for Visit Chief Complaint Admit Date LOW BACK BACK - LUMBAR XRAY December 12, 2024 3:39pm Additional Source Comments INFORMATION SOURCE (unrecogn ized section and content) DATE CREATED AUTHOR 02/01/2018 [facility] DATE CREATED AUTHOR AUTHOR'S ORGANIZ ATION 06/23/2018 [facility] DATE CREATED AUTHOR AUTHOR'S ORGANIZ ATION 12/23/2024 [facility] Care Teams (unrecognized sec tion and content) Team Status: Active Member Role Status Dates Dr. Bambi Alanis MD Family Provider Active Dr. Bambi Alanis MD Primary Care Provider Active Team Status: Inactive Member Role Status Dates Dr. Bambi Alanis MD Primary Care Provider Active Dr. Vero Balbuena DO Attending Provider, Referring Prov ider Active Team Status: Active Member Role/Relationship Status Dates Dr. Vero Balbuena DO Primary care physician Active Team Status: Inactive Member Role/Relationship Status Dates Dr. Vero Balbuena DO Primary care physician Active Start: December 12, 2024 End: December 12, 2024 Dr. Vero Balbuena DO Attending physician Active S tart: December 12, 2024 End: December 12, 2024 Dr. Vero Balbuena DO Referring Provider Active St art: December 12, 2024 End: December 12, 2024 Goals (unrecognized section and content) Goals may be documented in a n alternate sectionGoals may be documented in an alternate section FOR RECORDS PERTAINING TO PATIENTS WHO ARE OR HAVE BEEN ENROLLED IN A CHEMICAL DEPENDENCY/SUBSTANCEABUSE PROGRAM, SOME INFORMATION MAY BE OMITTED. This clinical summary was aggregated from multiple sources. Caution should be exercised in using it in the provision of clinical care. This summary normalizes information from multiple sources, and as a consequence, information in this document may materially change the coding, format and clinical context of patient data. In addition, data may be omitted in some cases. CLINICAL DECISIONS SHOULD BE BASED ON THE PRIMARY CLINICAL RECORDS. [facility] [employer] [facility]. provides no warranty or guarantee of the accuracy or completeness of information in this document.
== END | disposition home or self-care (01) ==
LOC: MTRAD 14:37
PROVIDERS: PCP Family Medicine; Referring Provider Family Medicine; Visit Provider Family Medicine
DX: M25.561 Pain in right knee (principal)
CPT/HCPCS: 73564